=== PATIENT | female | born 1945 | race Two or more races ===

== ENCOUNTER 2021-06-22 12:51 | Inpatient (IN) | payer MEDICARE, OTHER ==
[~2021-06-22] VITALS: Ht 160 cm; Wt 79.6 kg
[2021-06-22 15:58] LABS: Basophils # (auto) 0 10 ^3/uL (0-0.2); Basophils % (auto) 0.5 % (0.0-2.0); Eosinophils # (auto) 0.1 10 ^3/uL (0-0.8); Eosinophils % (auto) 0.9 % (0.0-7.0); Hematocrit 36.3 % (36.0-46.0); Hemoglobin 12.3 g/dL (12.2-16.2); Lymphocytes # (auto) 1.3 10 ^3/uL (0.4-5.4); Lymphocytes % (auto) 16.7 % (10.0-50.0); Mean Corpuscular Hemoglobin 28.9 pg (28.0-32.0); Monocytes # (auto) 0.4 10 ^3/uL (0-1.3); Monocytes % (auto) 5.5 % (0.0-12.0); Neutrophils # (auto) 5.8 10 ^3/uL (1.6-8.6); Neutrophils % (auto) 76.4 % (37.0-80.0); Red Blood Cells 4.27 10^6/uL (4.0-5.20); Red Cell Distribution Width 13.9 % (11.8-14.3); White Blood Cell 7.6 10^3/uL (4.4-10.8)
[2021-06-22 16:09] LABS: Albumin 3.1 g/dL (3.4-5.0); Anion Gap 10 (5-15); Blood Urea Nitrogen 17 mg/dL (7-18); Calcium 9.3 mg/dL (8.5-10.1); Carbon Dioxide 22 mmol/L (21-32); Chloride 107 mmol/L (98-107); Glucose 93 mg/dL (74-106); Potassium 3.6 mmol/L (3.5-5.1); Sodium 139 mmol/L (136-145)
[2021-06-22 16:16] LABS: Alanine Aminotransferase 17 U/L (13-56); Alkaline Phosphatase 184 U/L (45-117); Aspartate Aminotransferase 15 U/L (15-37); BUN/Creatinine Ratio 32.1; Bilirubin, Total 0.4 mg/dL (0.2-1.0); GFR African American 145 mL/min; GFR Non-African American 120 mL/min; Partial Thromboplastin Time 26.7 sec (23.6-33.0); Total Protein 7.9 g/dL (6.4-8.2)
[2021-06-22] MEDS ORDERED: MORPHINE SULFATE INJECTION 2 MG/ML SYRG IV PRN ×2 (18:30)
[2021-06-22] MEDS ORDERED: NITROGLYCERIN 0.4 MG SL TAB SL PRN (18:30)
[2021-06-22] MEDS ORDERED: LORazepam 2MG/ML-1ML VIAL IV PRN (18:30)
[2021-06-22] MEDS ORDERED: HYDROcodone-ACET 5/325MG TAB PO PRN (18:30)
[2021-06-22] MEDS ORDERED: ONDANSETRON HCL 4 MG/2 ML VIAL IV PRN (18:30)
[2021-06-22 23:00] VITALS: BP 162/66
[2021-06-23] MEDS ORDERED: HYDR200T36 PO (02:54)
[2021-06-23] MEDS ORDERED: METH2.5T PO (02:54)
[2021-06-23] MEDS ORDERED: FOLI1TAB6 PO (02:54)
[2021-06-23] MEDS ORDERED: SULF500T8 PO (02:54)
[2021-06-23 05:00] VITALS: BP 129/66
[2021-06-23 05:46] LABS: Urine Bacteria NONE SEEN /hpf (None Seen); Urine Blood Negative /uL (Negative); Urine Mucus FEW (None Seen); Urine Specific Gravity 1.017 (1.001-1.035); Urine WBC 12 /hpf (0 - 5)
[2021-06-23 09:00] VITALS: BP 141/74
[2021-06-23] MEDS: FOLIC ACID 1 MG TAB PO SCH (10:17)
[2021-06-23] MEDS: ACETAMINOPHEN 500 MG TAB PO PRN (10:18)
[2021-06-23] MEDS: hydrOXYchloroQUINE SULFATE 200 MG TAB PO SCH (10:18)
[2021-06-23] MEDS: sulfaSALAzine 500 MG TAB PO SCH (10:18)
[2021-06-23 13:00] VITALS: BP 137/64
[2021-06-23] MEDS ORDERED: METHOTREXATE 2.5 MG TAB PO SCH (17:00)
[2021-06-23 17:09] VITALS: BP 126/72
[2021-06-23] MEDS ORDERED: LORazepam 2MG/ML-1ML VIAL IV PRN (20:15)
[2021-06-23 22:00] VITALS: BP 147/78
[2021-06-24 05:00] VITALS: BP 136/71
[2021-06-24 09:00] VITALS: BP 153/75
[2021-06-24] MEDS ORDERED: GADOTERATE MEG 7.5 MMOL/15ml INJ (0.5MMOL/ml) IV ONE (09:45)
[2021-06-24] MEDS: sulfaSALAzine 500 MG TAB PO SCH (10:50)
[2021-06-24] MEDS: hydrOXYchloroQUINE SULFATE 200 MG TAB PO SCH (10:50)
[2021-06-24] MEDS: FOLIC ACID 1 MG TAB PO SCH (10:50)
[2021-06-24] MEDS: ACETAMINOPHEN 500 MG TAB PO PRN (10:51)
[2021-06-24 12:38] VITALS: BP 136/65
[2021-06-24] MEDS: SODIUM CHLORIDE 0.9% 1,000 ML IV SCH (14:20)
[2021-06-24 16:36] VITALS: BP 147/73
[2021-06-24 22:00] VITALS: BP 140/73
[2021-06-25 05:00] VITALS: BP 138/65
[2021-06-25 09:00] VITALS: BP 150/64
[2021-06-25] MEDS: hydrOXYchloroQUINE SULFATE 200 MG TAB PO SCH (09:17)
[2021-06-25] MEDS: FOLIC ACID 1 MG TAB PO SCH (09:18)
[2021-06-25] MEDS: sulfaSALAzine 500 MG TAB PO SCH (09:20)
[2021-06-25] MEDS: SODIUM CHLORIDE 0.9% 1,000 ML IV SCH ×3 (10:00→21:21)
[2021-06-25 13:00] VITALS: BP 149/71
[2021-06-25 17:00] VITALS: BP 149/81
[2021-06-26 05:00] VITALS: BP 136/72
[2021-06-26] MEDS: SODIUM CHLORIDE 0.9% 1,000 ML IV SCH ×2 (05:55→16:33)
[2021-06-26 09:41] VITALS: BP 149/67
[2021-06-26] MEDS ORDERED: IOHEXOL 350 MG/ML 100ML IJ ONE (10:21)
[2021-06-26] MEDS: sulfaSALAzine 500 MG TAB PO SCH (11:15)
[2021-06-26] MEDS: hydrOXYchloroQUINE SULFATE 200 MG TAB PO SCH (11:16)
[2021-06-26] MEDS: FOLIC ACID 1 MG TAB PO SCH (11:16)
[2021-06-26 13:00] VITALS: BP 140/72
[2021-06-26 16:48] VITALS: BP 146/75
[2021-06-26 22:00] VITALS: BP 133/61
[2021-06-27 05:00] VITALS: BP 128/70
[2021-06-27] MEDS: SODIUM CHLORIDE 0.9% 1,000 ML IV SCH ×3 (06:35→21:36)
[2021-06-27 09:00] VITALS: BP 157/64
[2021-06-27] MEDS: FOLIC ACID 1 MG TAB PO SCH (09:32)
[2021-06-27] MEDS: hydrOXYchloroQUINE SULFATE 200 MG TAB PO SCH (09:33)
[2021-06-27] MEDS: sulfaSALAzine 500 MG TAB PO SCH (09:33)
[2021-06-27 13:00] VITALS: BP 161/57
[2021-06-27 16:07] VITALS: BP 134/70
[2021-06-27] MEDS: ACETAMINOPHEN 500 MG TAB PO PRN (21:09)
[2021-06-27 22:00] VITALS: BP 132/59
[2021-06-28 05:00] VITALS: BP 144/68
[2021-06-28] MEDS: hydrOXYchloroQUINE SULFATE 200 MG TAB PO SCH (08:57)
[2021-06-28] MEDS: sulfaSALAzine 500 MG TAB PO SCH (08:58)
[2021-06-28] MEDS: FOLIC ACID 1 MG TAB PO SCH (08:58)
[2021-06-28] MEDS: SODIUM CHLORIDE 0.9% 1,000 ML IV SCH (08:59)
[2021-06-28 09:00] VITALS: BP 140/66
[2021-06-28 13:31] VITALS: BP 163/73
[2021-06-28 13:32] VITALS: BP 163/73
== END 2021-06-28 15:30 | disposition home or self-care (01) | DRG 100 ==
LOC: ER 12:51 → TELE 18:19 → TELE-CENTR 22:30
PROVIDERS: ADMIT Nurse Practitioner Acute Care; ATTEND Family Medicine
DX: G40.89 Other seizures (principal); I60.9 Nontraumatic subarachnoid hemorrhage, unspecified; E44.0 Moderate protein-calorie malnutrition; M06.9 Rheumatoid arthritis, unspecified; J44.9 Chronic obstructive pulmonary disease, unspecified; Z20.822 Contact with and (suspected) exposure to COVID-19; E78.5 Hyperlipidemia, unspecified; I10 Essential (primary) hypertension; Z68.28 Body mass index [BMI] 28.0-28.9, adult; Z88.0 Allergy status to penicillin; Z82.49 Family history of ischemic heart disease and other diseases of the circulatory system; Z83.3 Family history of diabetes mellitus; Z85.41 Personal history of malignant neoplasm of cervix uteri; Z90.710 Acquired absence of both cervix and uterus
CPT/HCPCS: 36415; 70450; 70496; 70553; 71045; 72125; 80053; 81001; 83735; 84484; 85025; 85610; 85730; 87426; 93005; 93306; 93886; 95819; G0378